=== PATIENT | male | born 1925 | race Caucasian/White ===

== ENCOUNTER 2016-02-03 21:53 | Inpatient (IN) | payer MEDICARE, OTHER ==
[~2016-02-03] VITALS: Ht 177.8 cm; Wt 60.1 kg
[~2016-02-03 21:53] MED LIST: ENAL2.5T PO; HYDR1TAB PO; OMEP20TA86 PO; ZOC20 PO
--- NOTE | 2016-02-03 22:12 | ED.REPORT ---
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 His states that the patient has collapsed once yesterday and once today, with decreased exercise capacity. The patient was evaluated by EMS yesterday after he collapsed, but he did not want to be transported to the ED. However, he was transported today after he collapsed prior to arrival. He did not lose consciousness. His states he feels fine if sitting, but if moves to his portable oxygen reports that he cannot breath. They have had to increase his oxygen requirements. The patient reported that he felt unwell at home prior to arrival, however in the ED he states that he now feels well. His reports a home O2 sat of 95% while on oxygen. He denies productive cough, fever, chest pain, abdominal pain, vomiting, or increased swelling in his legs. The patient is hard of hearing. Nursing Notes Stated Complaint: WEAKNESS,SOB Nursing Notes Reviewed: Yes Allergies: Coded Allergies: No Known Allergies (Verified , 05/23/06) Scheduled Enalapril-Expunged Drug, Do Not Renew! (Enalapril-Expunged Drug, Do Not Renew!) 2.5 Mg Tablet 2.5 MG PO DAILY Hydrocod/APAP-Expunged, Do Not Renew! (VICODIN 5/500-Expunged Drug, Do Not Renew ) 1 Udtab Tablet 1 UDTAB PO HS Omeprazole-Expunged Drug, Do Not Renew! (Omeprazole-Expunged Drug, Do Not Renew! ) 20 Mg Tablet.dr 20 MG PO THREE TIMES WEEKLY Simvastatin-Expunged Drug, Choose New Med! (Simvastatin-Expunged Drug, Choose New Med!) 20 Mg Tablet 20 MG PO DAILY General Time Seen by MD: 22:12 Chief Complaint Breathing problem, Weakness Hx Obtained From: Patient, Spouse Arrived By: Ambulance Sudden in Onset?: No Onset Occurred: 2 days ago Symptom Duration: Since onset Severity: Current: No pain currently Severity: Maximum: No pain Recent Healthcare: No recent doctor visit, No recent hospitalization Similar Sx Previous: No Past Medical History Past Medical History chronic emphysema arthritis hard of hearing Reports: GERD, Hypertension, Stroke Reports: Atrial fibrillation Past Surgical History left knee arthoplasty Reports: Cholecystectomy, Inguinal hernia repair, Tonsillectomy Smoking History Former Smoker Social History Alcohol Use: Denies alcohol use Other Social History: Good social support, , Local resident Ambulatory Status Independent Review of Systems Full Review of Systems Constitutional: Reports: Weakness - generalized, Denies: Fever Respiratory: Reports: Dyspnea on exertion, Shortness of breath, Denies: Prod cough, green, Prod cough, yellow Cardiovascular: Denies: Chest pain GI: Denies: Abdominal pain, Vomiting Musculoskeletal: Denies: Extremity pain, Extremity swelling Neurologic: Denies: Change LOC Complete sys rev & neg: except as marked. Physical Exam Vital Signs Vital Signs Date Time Temp Pulse Resp B/P Pulse Ox O2 Delivery O2 Flow Rate FiO2 02/04/16 00:06 22 118/60 100 Room Air 3 02/03/16 22:14 81 24 102/56 96 Nasal Cannula 3 Initial VS: Reviewed Neurologic: Alert, Oriented, Nonfocal Psychiatric: Mood/affect normal, Behavior normal, Normal thought content General/Constitutional: Awake, Alert hard of hearing dry appearing Head / Eyes: Normocephalic, PERRL, EOMI ENT: Airway patent Mouth: Positive: Mucous membranes dry Respiratory / Chest: No rales, No rhonchi Diminished Breath Sounds: Positive: Decreased bilateral Cardiovascular: Heart rate NL, Regular rhythm, No gallop, No murmurs, No rubs Heart Sounds / Murmur: Positive: Heart sounds diminished Abdomen: Soft, Non-tender, No guarding, No rebound Upper Extremities Upper Extremity / MS: No swelling, No edema Lower Extremity / Pelvis / MS: No swelling, No edema Skin: Warm, Dry Rash / Lesion Notes: dusky appearing Interpretation & Diagnostics Interpretation & Diagnostics: NEGATIVE FOR INFLUENZA TYPE A AND B Lab Results Interpretation Result Diagram: 02/03/16 2200 02/03/16 2200 Test 02/03/16 22:00 02/03/16 22:57 White Blood Count 10.3th/mm3 (3.8-10.1) Red Blood Count 4.18mil/mm3 (4.40-5.80) Hemoglobin 13.4g/dL (13.8-17.2) Hematocrit 40.9% (41.0-50.0) Mean Corpuscular Volume 97.8fL (81-100) Mean Corpuscular Hemoglobin 32.1pg (27.0-35.0) Mean Corpuscular Hemoglobin Concent 32.8% (32.0-37.0) Red Cell Distribution Width 13.3% (12.3-15.4) Platelet Count 307bil/L (150-400) Neutrophils (%) (Auto) 78.6% (40-74) Lymphocytes (%) (Auto) 10.0% (14-46) Monocytes (%) (Auto) 10.8% (4-12) Eosinophils (%) (Auto) 0.2% (0-5) Basophils (%) (Auto) 0.2% (0-3) Hold Purple Top Tube Received (Received) Prothrombin Time 27.8sec (8.1-12.5) Prothromb Time International Ratio 2.55ratio Activated Partial Thromboplast Time 31.7sec (22.8-33.0) Hold Blue Top Tube Received (Received) Sodium Level 132mEq/L (134-144) Potassium Level 4.7mEq/L (3.5-5.2) Chloride Level 92mEq/L (97-108) Carbon Dioxide Level 22mmol/L (18-29) Blood Urea Nitrogen 17mg/dL (8-27) Creatinine 0.85mg/dL (0.76-1.27) Estimat Glomerular Filtration Rate 90mL/min (>59) Glucose Level 162mg/dL (60-99) Calcium Level 9.2mg/dL (8.5-10.1) Magnesium Level 1.8mg/dL (1.6-2.6) Total Bilirubin 1.5mg/dL (0.0-1.2) Aspartate Amino Transf (AST/SGOT) 29U/L (0-50) Alanine Aminotransferase (ALT/SGPT) 18U/L (0-44) Alkaline Phosphatase 123U/L (25-160) Troponin T 0.075ug/L (0.0-0.011) Pro-B-Type Natriuretic Peptide 4361pg/mL (0-486) Total Protein 6.6g/dL (6.4-8.4) Albumin 3.9g/dL (3.4-5.0) Hold Red Top Tube Received (Received) Hold [place] Top Tube Received (Received) Hold [place] Top Tube Received (Received) ECG Interpretation ECG Interpretation: Atrial fibrillation, Rate 72 Old inferior wall NC Time: 23:15 Interpreted by: ED physician Normal ECG Interpretation: No acute ischemic changes X-Ray Chest Interpretation Chest Xray Interpretation: Impresson: Increasing pleural effusions bilaterally. Chronic changes associated with asbestosis. View: Portable Interpretation / Wet Read by: Wet read ED physician Re-Eval/Medical Decision Med Decision/Clinical Course 89-year-old with emphysema presents with increasing air hunger decreased exercise capacity and several episodes of near collapse or inability to walk and minimal distances. He has findings of emphysema on exam, but no evidence of acute infection. His x-ray has bilateral small pleural effusions which are new. No evident pneumonia. His troponin is elevated at 0.07 suggesting a non-STEMI in the past few days. I suspect ultimately his problem is that he is having LV dysfunction as a result of intermittent ischemia, and has had an non-transmural NC. He is admitted now for further evaluation and management, as this is a new issue for him. He was given aspirin, cardiac heparin, and Lasix IV. He is admitted in stable condition. Source of Hx: Old records Time of Eval: 23:03 Patient Status: Condition improved Re-Evaluation/Progress Note: Rechecked the patient and his family. They were informed of the results of the chest x-ray and labs, with the finding of an elevated troponin. Patient will need to be admitted to the hospital for further workup. Unknown current bed status at [facility]. Patient understands and agrees with this plan. All questions were addressed. Time of Eval: 00:03 Re-Evaluation/Progress Note: Updated the patient that a bed has been found for him at [facility]. Consultation #1: Referral / Consult Name: Siomara Suarez MD Consulted With: Hospitalist Call Returned at: 23:22 Note: Spoke with Dr. Suarez, hospitalist, about the patient's case. There are not currently any beds available that meet the criteria needed to admit this patient. Consultation #2: Referral / Consult Name: Siomara Suarez MD Consulted With: Hospitalist Call Returned at: 00:03 Inside Sales Account Representative: Will see patient, Agrees with eval, Agrees with plan, Accepts admit Note: Bed was found for the patient. Dr. Suarez accepts the patient for admit. Counseled Regarding: Diagnosis, Lab results, Need for admission Discharge & Departure Shift Change Sign-Out Response to Therapy: Improved Primary Impression: NSTEMI (non-ST elevated myocardial infarction) Additional Impressions: Elevated troponin Pleural effusion Shortness of breath Atrial fibrillation Atrial fibrillation type: chronic Qualified Code: I48.2 - Chronic atrial fibrillation Disposition: ADMITTED TO HOSPITAL Discharge Condition All VS Reviewed: Yes Condition: Stable Referrals: Mukesh Alonso DO (PCP) [facility] Attestation Portions of this note were transcribed by Rosita Hightower. I, Dr. Leach personally performed the history, physical exam and medical decision-making; I reviewed and confirmed the accuracy of the information in the transcribed note. Signed by: Tigre Uribe, 01/25/2016, 0005 copies to: Mukesh Alonso Christopher W MD Feb 03, 2016 22:12 Rosita Hightower Feb 03, 2016 22:22
[2016-02-03 22:14] VITALS: BP 102/56; PULSE 81; RESP 24; O2SAT 96
[2016-02-03] MEDS ORDERED: Albuterol-Ipratropium 3 mL Inhalation Solution NEB ONE (22:25)
[2016-02-03] MEDS ORDERED: Albuterol 2.5 mg/3 mL Inhalation Solution NEB ONE (22:25)
[2016-02-03 22:31] LABS: BASOPHILS % (AUTO) 0.2 % (0-3); EOSINOPHILS % (AUTO) 0.2 % (0-5); MONOCYTES % (AUTO) 10.8 % (4-12); Mean Corpuscular Hemoglobin 32.1 pg (27.0-35.0); Mean Corpuscular Volume 97.8 fL (81-100); NEUTROPHILS % (AUTO) 78.6 % (40-74); Platelet Count 307 bil/L (150-400)
[2016-02-03 22:39] LABS: INR 2.55 ratio
[2016-02-03 22:56] LABS: Magnesium 1.8 mg/dL (1.6-2.6)
[2016-02-03 22:58] LABS: TROPONIN T 0.075 ug/L (0.0-0.011)
--- NOTE | 2016-02-03 22:59 | ABG ---
DateTimeAnalyzed 22:55:00 -_ pH ____7.417 - 7.350 7.450 pCO2 ___34.1__ -mmHg 35.0 45.0 pO2 142 -mmHg 69.0 116 HCO3- ___21.6__ -mmol/L 22.0 26.0 ABE ___-1.8__ -mmol/L -2.0 2.0 tHb ___13.3__ -g/dL O2Hb ___96.9__ -% COHb ____1.1__ -% MetHb ____0.8__ -% sO2 ___98.8__ -% 25.0 FIO2 ___35.0__ -% Drawn By MK - Date/Time Notified____ 22:59:00 -_ Oxygen Device 1 SIMP MASK - Notified By MK - B 762 -mmHg tO2 ___18.3__ -Vol% Trey test _Positive -
[2016-02-04] VITALS (9 sets, daily range): BP systolic 113–141; BP diastolic 60–84; PULSE 66–112; RESP 16–26; O2SAT 90–100
[2016-02-04] MEDS ORDERED: Furosemide 10 mg/mL 4 mL Inj IVPUSH ONE (00:05)
[2016-02-04] MEDS ORDERED: Heparin 25K Unit/500mL 0.45 NS 25,000 UNIT in IV Premix 1 EACH IV SCH (00:05)
[2016-02-04] MEDS ORDERED: Heparin 5,000 Unit/mL Inj IVPUSH PRN (00:05)
--- NOTE | 2016-02-04 00:52 | PCM.HPMED ---
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 He has increased his oxygen at home from 2 liters to 3 liters. His told ER physician that the patient has collapsed once yesterday and once today, with decreased exercise capacity. The patient was evaluated by EMS yesterday after he collapsed, but he did not want to be transported to the ED. However, he was transported today (02/02) after he collapsed prior to arrival. He did not lose consciousness. His states he feels fine if sitting, but if moves to his portable oxygen reports that he cannot breathe. The patient reported that he felt unwell at home prior to arrival, however currently he denies any pain, dizziness, nausea, vomiting, shortness of breath, palpitations. His reported a home O2 sat of 95% while on oxygen. The patient is very hard of hearing. . Review of Systems: As per HPI, otherwise negative Allergies Coded Allergies: No Known Allergies (Verified , 05/23/06) Home Medications Taken from ED note. Day team to verify home medications: Enalapril-Expunged Drug, Do Not Renew! (Enalapril-Expunged Drug, Do Not Renew!) 2.5 Mg Tablet 2.5 MG PO DAILY Hydrocod/APAP-Expunged, Do Not Renew! (VICODIN 5/500-Expunged Drug, Do Not Renew ) 1 Udtab Tablet 1 UDTAB PO HS Omeprazole-Expunged Drug, Do Not Renew! (Omeprazole-Expunged Drug, Do Not Renew! ) 20 Mg Tablet.dr 20 MG PO THREE TIMES WEEKLY Simvastatin-Expunged Drug, Choose New Med! (Simvastatin-Expunged Drug, Choose New Med!) 20 Mg Tablet 20 MG PO DAILY PMH chronic emphysema arthritis hard of hearing Reports: GERD, Hypertension, Stroke Reports: Atrial fibrillation Surgical History left knee arthoplasty Reports: Cholecystectomy, Inguinal hernia repair, Tonsillectomy Family History Father with stroke, CAD Social History Hx Alcohol Use: Yes (quit in 1996) Hx Substance Use: No Hx Tobacco Use: Yes Smoking Status: Former Smoker Living Arrangement: with Family Exam Vital Signs Vital Sign - Last Date Time Temp Pulse Resp B/P Pulse Ox O2 Delivery O2 Flow Rate FiO2 02/04/16 00:06 22 118/60 100 Room Air 3 02/03/16 22:14 81 Exam General/Constitutional: Awake, Alert, cachectic Neurologic: Alert, Oriented, Nonfocal Psychiatric: Mood/affect normal, Behavior normal, Normal thought content Head / Eyes: Normocephalic, PERRL, EOMI ENT: Airway patent, hard of hearing Mouth: Positive: Mucous membranes dry Respiratory / Chest: No rales, No rhonchi, barrel chested, wearing nasal canula Diminished Breath Sounds: Positive: Decreased bilateral Cardiovascular: Heart rate NL, irregular rhythm, No gallop, No murmurs, No rubs appreciated, distant heart sounds Abdomen: Soft, Non-tender, No guarding, No rebound Extremities: 1+ pitting edema B/L feet and ankles . Lab and Diagnostics Labs Troponin T 0.075; ProPNP 4361; procalcitonin pending; urinalysis pending Result Diagram: 02/03/16219902/03/162199 Microbiology Microbiology 02/03/16 Blood Culture, Received Pending 02/03/16 Influenza Screen - Final, Complete, negative X-Rays, CTs and MRIs Chest Xray Interpretation: Impresson: Increasing pleural effusions bilaterally. Chronic changes associated with asbestosis. View: Portable Interpretation / Wet Read by: Wet read ED physician 12-lead ECG ECG Interpretation: Atrial fibrillation, Rate 72 Old inferior wall [place] Time: 23:15 Interpreted by: ED physician Normal ECG Interpretation: No acute ischemic changes Additional Diagnostics: CORNELIUS LEIGH 1925 Male DateTimeAnalyzed 22:55:00 -_ pH ____7.417 - 7.350 7.450 pCO2 ___34.1__ -mmHg 35.0 45.0 pO2 142 -mmHg 69.0 116 HCO3- ___21.6__ -mmol/L 22.0 26.0 ABE ___-1.8__ -mmol/L -2.0 2.0 tHb ___13.3__ -g/dL O2Hb ___96.9__ -% COHb ____1.1__ -% MetHb ____0.8__ -% sO2 ___98.8__ -% 25.0 FIO2 ___35.0__ -% Drawn By MK - Date/Time Notified____ 22:59:00 -_ Oxygen Device 1 SIMP MASK - Notified By MK - B 762 -mmHg tO2 ___18.3__ -Vol% Trey test _Positive - Assessment & Plan Patient is an 89 year old male with a history of 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 DAY TEAM TO VERIFY MEDICATIONS. HAS LIST BUT TOOK IT HOME. PATIENT STATES TAKES 7 MEDICATIONS AT 2:00 PM EVERY DAY. Dyspnea, present on admission, acute - Elevated troponin (0.075). Will trend - Heparin drip protocol - Consult cardiology in a.m. Not ordered yet - Echocardiogram ordered - PT ordered - Last echocardiogram 06/15/15: There is mild concentric left ventricular hypertrophy. The ejection fraction is estimated to be 50-55%. There is severe biatrial enlargement. There is mild to moderate mitral regurgitation. Leaflet mobility is minimally reduced. There is moderate tricuspid regurgitation. The right ventricular systolic pressure is estimated at 56 mmHg assuming a right atrial pressure of 8 mm Hg. Heart failure with reduced ejection fraction, present on admission, chronic - Currently patient does not look or sound fluid overloaded - Given furosemide in the ED - Monitor COPD, present on admission, chronic - Requires 2-3 L O2 at home - No increased need of oxygen - Keep O2 between 88% and 92% - Likely his increased SOB is related to cardiac. Plan as above. - DuoNebs - Given furosemide in the ED - Verify home medications B/L mild pleural effusions, present on admission, acute - monitor, currently using the same O2 as he uses at home - currently denying dyspnea Atrial fibrillation, present on admission, chronic - currently heparin drip - telemetry - Verify home medications Hypertension, present on admission, chronic - currently controlled - Verify home medications Dyslipidemia, present on admission, chronic - lipid panel ordered - Verify home medications - Acetaminophen as needed for mild pain/fever/headache - Bowel regimen as needed - Antiemetic as needed Patient admitted under inpatient status with expected length of stay > 2 midnights for severity of present symptoms, complexities of treatment plan and risk for adverse events CODE STATUS: DNR/DNI verified with patient Pain Evaluation: Adequate Pain Control GI Prophylaxis: Proton Pump Inhibitor VTE Prophylaxis: Other (haprin drip) Resuscitation Status: DNR/DNI:Do Not Resuscitate/Intubate Attending Statement Pt seen and examined by myself and agree with above plan. copies to: Mukesh Alonso Janice M DO Feb 04, 2016 00:52 Siomara Suarez MD Feb 04, 2016 06:20
[2016-02-04] MEDS ORDERED: Polyethylene Glycol (PEG) 17 Gm Powder PO PRN (00:55)
[2016-02-04] MEDS ORDERED: Ondansetron 2 mg/mL 2 mL Inj IVPUSH PRN (00:55)
[2016-02-04] MEDS ORDERED: Alum-Mag Hydrox-Simeth 30 mL Suspension PO PRN (00:55)
[2016-02-04] MEDS ORDERED: Albuterol-Ipratropium 3 mL Inhalation Solution NEB PRN (01:20)
[2016-02-04 01:42] LABS: APPEARANCE,URINE CLEAR (CLEAR,HAZY); COLOR,URINE YELLOW (YELLOW); OCCULT BLOOD,URINE NEGATIVE (NEGATIVE); PH,URINE 5.5 (5.0-8.0)
--- NOTE | 2016-02-04 04:27 | NUR ---
Admit Pt arrived to PCC room 2006 at approx. 0130 from ED via bed, report received from Trina Florez RN. Pt significantly fatigued, unable to transfer self to bed, but independent in bed mobility. AOx3. Pt denies pain, reports dyspnea at baseline. NC 2L in place, SpO2 97%. Unable to complete med rec d/t pt not having list with self; list requested to be brought in. Unable to complete admission documentation d/t extreme EKLUTNA in patient; pt unable to respond to questions. Hearing aides requested to be brought in. Heparin gtt infusing at 800units/hr. Tele afib 80s. Pt had 5 beats of VT x2 this shift, asymptomatic. SCDs in place.
[2016-02-04 06:10] LABS: BASOPHILS % (AUTO) 0.3 % (0-3); EOSINOPHILS % (AUTO) 0.3 % (0-5); MONOCYTES % (AUTO) 11.2 % (4-12); Mean Corpuscular Hemoglobin 31.5 pg (27.0-35.0); Mean Corpuscular Volume 95.8 fL (81-100); NEUTROPHILS % (AUTO) 74.8 % (40-74); Platelet Count 251 bil/L (150-400)
[2016-02-04 07:41] LABS: TROPONIN T 0.134 ug/L (0.0-0.011)
[2016-02-04] MEDS ORDERED: HYDR-4003 PO (08:21)
[2016-02-04] MEDS ORDERED: ASPI-973 PO (08:21)
[2016-02-04] MEDS ORDERED: WARF3TAB7 PO ×2 (08:21)
[2016-02-04] MEDS ORDERED: ATOR10TA66 PO (08:21)
[2016-02-04] MEDS ORDERED: DILT240T PO (08:21)
[2016-02-04] MEDS ORDERED: METF500T4 PO (08:21)
[2016-02-04] MEDS ORDERED: FERR325T39 PO (08:21)
[2016-02-04] MEDS ORDERED: ENAL2.5T PO (08:22)
[2016-02-04] MEDS ORDERED: CALC600T12 PO (08:22)
[2016-02-04] MEDS: Sodium Chloride LOK Flush 10 mL Syringe IVFLUSH SCH ×3 (08:30→20:31)
--- NOTE | 2016-02-04 09:08 | DRSVH ---
PROCEDURE: X-RAY CHEST ONE VIEW, PORTABLE ([id number]) INDICATIONS: sob TECHNIQUE: One view of the chest was acquired. COMPARISON: [facility], CR, XR CHEST 2VW, 06/25/2015, 10:01. FINDINGS: Surgical changes and devices: Previous thoracic spine kyphoplasty.. Lungs and pleura: Slight interval increase in size of small left pleural effusion. Interval increase in diffuse, widespread bilateral interstitial opacities. Left basilar airspace opacity present. Ri ght basilar pleural plaque redemonstrated. Mediastinum: Mediastinal contours appear normal. Heart size is normal. Bones and chest wall: No suspicious bony lesions. Overlying soft tissues appear unremarkable. IMPRESSION: 1. Increase in size of small left pleural effusion and basilar opacity consistent with compressive at electasis versus aspiration or pneumonia. 2. Diffuse bilateral interstitial opacities suggesting pulmonary edema. 3. 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 Dictated by: Tutu Sherman RRA Interpreted: Juana Jack MD on 02/04/2016 at 9:01 Transcribed by: ISATU on 02/04/2016 at 9:01 Approved by: Juana Jack MD, PhD on 02/04/2016 at 16:11
--- NOTE | 2016-02-04 14:10 | NUR ---
PTT/Heparin Pt PTT value this am at 0745 critical high at 223. Heparin drip was placed on standby and repeat PTT was drawn at 0845. Repeat value was 86. Pt heparin drip was restarted and decreased by 50units to 750units/hour. PTT was drawn again at 1200 per provider orders. Lab called with critical value of 240.Per protocol Heparin drip was placed in standby. MD was notified and discussed results with Nurse bridge/structure inspection team leader. Upon examination it appeared that the lab draw was in the same arm as the heparin drip and is providing a false positive for PTT. Lab called and notified. Asked for blanket maker to make sure blood draw is in other arm. Next scheduled PTT is at 1425 (ordered by ). Will use that result to calculate heparin drip rate moving forward. Per Nurse bridge/structure inspection team leader, heparin drip restarted at 750u/hr.
--- NOTE | 2016-02-04 14:37 | PCM.PNMED ---
Subjective Date of Service Feb 04, 2016 Subjective He is doing better. He notes his breathing is better. He denies any chest pain. No palpitations. No nausea vomiting or abdominal pain. No diarrhea. Exam Vital Signs Vital Sign - Last Date Time Temp Pulse Resp B/P Pulse Ox O2 Delivery O2 Flow Rate FiO2 02/04/16 11:34 36.4 112 24 141/84 90 Nasal Cannula 1.00 Intake and Output 02/03/16 02/03/16 02/04/16 Cumulative From/Thru 15:00 23:00 07:00 02/03/16 22:14 - 02/04/16 06:28 Intake Total 280 ml 280 ml Output Total 1200 ml 1200 ml Balance -920 ml -920 ml Intake Oral 200 ml 200 ml IV Total 80 ml 80 ml Output Urine Total 1200 ml 1200 ml # Voids 6 6 # Bowel Movements 0 0 Exam Third oriented, no acute distress. Fluent speech. Normal scalp. Anicteric sclerae, symmetric pupils Neck supple. Lungs with diminished breath sounds in the bases. No focal findings. Heart is regular without murmur. Abdomen is soft nondistended. Extremities are free of edema and good pedal and radial pulses. Skin is free of rash or lesions IVs and Medications Medications Reviewed: Medications were reviewed in detail Lab and Diagnostics Result Diagram: 02/04/16 0550 02/04/16 0550 Microbiology Microbiology 02/03/16 Blood Culture, Received Pending 02/03/16 Influenza Screen - Final, Complete, negative X-Rays, CTs and MRIs Chest Xray Interpretation: Impresson: Increasing pleural effusions bilaterally. Chronic changes associated with asbestosis. View: Portable Interpretation / Wet Read by: Wet read ED physician 12-lead ECG ECG Interpretation: Atrial fibrillation, Rate 72 Old inferior wall [place] Time: 23:15 Interpreted by: ED physician Normal ECG Interpretation: No acute ischemic changes Additional Diagnostics CORNELIUS LEIGH 1925 Male DateTimeAnalyzed 22:55:00 -_ pH ____7.417 - 7.350 7.450 pCO2 ___34.1__ -mmHg 35.0 45.0 pO2 142 -mmHg 69.0 116 HCO3- ___21.6__ -mmol/L 22.0 26.0 ABE ___-1.8__ -mmol/L -2.0 2.0 tHb ___13.3__ -g/dL O2Hb ___96.9__ -% COHb ____1.1__ -% MetHb ____0.8__ -% sO2 ___98.8__ -% 25.0 FIO2 ___35.0__ -% Drawn By MK - Date/Time Notified____ 22:59:00 -_ Oxygen Device 1 SIMP MASK - Notified By MK - B 762 -mmHg tO2 ___18.3__ -Vol% Trey test _Positive - Assessment & Plan Patient is an 89 year old male with a history of 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 1. - Elevated troponin (0.075). Will trend - Heparin drip protocol - Consult cardiology in a.m. Not ordered yet - Echocardiogram ordered - PT ordered - Last echocardiogram 06/15/15: There is mild concentric left ventricular hypertrophy. The ejection fraction is estimated to be 50-55%. There is severe biatrial enlargement. There is mild to moderate mitral regurgitation. Leaflet mobility is minimally reduced. There is moderate tricuspid regurgitation. The right ventricular systolic pressure is estimated at 56 mmHg assuming a right atrial pressure of 8 mm Hg. 2. Acute on chronic systolic heart Heart failure (with reduced ejection fraction,) present on admission, - Currently patient does not look or sound fluid overloaded - Given furosemide in the ED, we will continue furosemide 40 mg IV daily. - Monitor 3. COPD, present on admission, chronic. - Requires 2-3 L O2 at home - No increased need of oxygen - Keep O2 between 88% and 92% - Likely his increased SOB is related to cardiac. Plan as above. - DuoNebs - Given furosemide in the ED - Verify home medications 4. B/L mild pleural effusions, present on admission, acute - monitor, currently using the same O2 as he uses at home - currently denying dyspnea 5. Atrial fibrillation, present on admission, chronic - currently heparin drip. Will stop heparin drip. - telemetry - Verify home medications 6. Hypertension, present on admission, chronic - currently controlled - Verify home medications 7. Dyslipidemia, present on admission, chronic - lipid panel ordered - Verify home medications - Acetaminophen as needed for mild pain/fever/headache - Bowel regimen as needed - Antiemetic as needed Patient admitted under inpatient status with expected length of stay > 2 midnights for severity of present symptoms, complexities of treatment plan and risk for adverse events CODE STATUS: DNR/DNI verified with patient Pain Evaluation: Adequate Pain Control GI Prophylaxis: Proton Pump Inhibitor VTE Prophylaxis: Other (haprin drip) VTE Mechanical Devices: Intermittant Pneumatic CD Resuscitation Status: DNR/DNI:Do Not Resuscitate/Intubate Time spent 30 min Trey Ang MD Feb 04, 2016 14:36
--- NOTE | 2016-02-04 14:46 | NUR ---
Social Work: Initial Assessment D: Per EMR review, Pt is an 89 year old male admitted for NON-STEMI/SOB/Pleural Effusion. Pt is Medicare with [place] [employer], with no LTC insurance or VA benefits. PCP is Mukesh Alonso MD. NOK is CRISTELA River, , . Advanced directives not completed- information provided to pt by LEASE PURCHASE DRIVER. Readmit score not entered at this time. LEASE PURCHASE DRIVER met with pt at bedside. Sw role explained. See initial assessment. Pt lives in [facility] with his spouse. He uses a cane at baseline and also owns a walker if necessary. Pt has home 02 through [employer]. Pt states he has a history at [email or web address] and [facility] but not currently open for services. Pt continues to drive and is I. Pt worked with PT; current recommendation is home with [email or web address]. LEASE PURCHASE DRIVER reviewed recommendations- pt is declining HH at this time. A: Pt who is I at baseline. P: Anticipate pt to discharge home via POV once medically stable; LEASE PURCHASE DRIVER to continue to follow if pt changes mind about dcp/HH. HETAL Cosme Addendum: 02/04/16 at 1452 by MEDHAT HERNANDEZ Amended: Links added.
--- NOTE | 2016-02-04 16:37 | DRSVH ---
[facility] [address] [place] [address] Echocardiogram Report Name: CORNELIUS LEIGH KStudy Date: 02/04/2016 Height: 70 in Hospital Exam Location: [facility] Weight: 139 lb Gender: Male BSA: 1.8 m2 : 1925 Age: 89 yrs BP: 120/60 mm Hg Reason For Study: SOB Ordering Physician: HOSPITALIST MAUREENerformed By: Neli Valle Referring Physician: Dr. Valdo Alonso Interpretation Summary 1) Normal left ventricular size and thickness with mildly reduced systolic function (EF45-50%). 2) Basal to mid inferior wall and basal to mid inferolateral wall are akinetic. 3) Moderately dilated right ventricle with moderately reduced function. 4) Mild to moderate mitral regurgitation present. 5) Severe tricuspid regurgitation present. 6) Pulmonary hypertension present, estimated systolic pulmonary pressure of 50 mmHg 7) Elevated right sided filling pressures. Left sided pleural effusion present. 8) Compared to the Echo done 06/15/2015, wall motion abnormalities as noted above, mild systolic dysfunction, and volume overload are new on today's study. Procedure: A two-dimensional transthoracic echocardiogram with color flow and Doppler was performed. The study quality was technically good. Comparison is made with the echocardiogram of 06-15-15. The patient was in atrial fibrillation with heart rates between 87-102 bpm during the exam. Left Ventricle: The left ventricle is normal in size. There is normal left ventricular wall thickness. The ejection fraction is estimated to be 45-50%. Left ventricular systolic function is mildly reduced. Basal to mid inferior wall and basal to mid inferolateral wall are akinetic. Diastolic function could not be accurately assessed due to atrial fibrillation. Right Ventricle: The right ventricle is moderately dilated. Right ventricular systolic function is moderately reduced. Atria: The left atrium is severely dilated. The right atrium is severely dilated. The interatrial septum is intact with no evidence for an atrial septal defect. Mitral Valve: The mitral valve leaflets appear mildly thickened, but open well. There is mild calcification extending into the subvalvular apparatus. There is mild to moderate mitral regurgitation. Aortic Valve: The aortic valve is trileaflet. The aortic valve is mildly calcified. Leaflet mobility is mild to moderately reduced. There is no aortic valve stenosis. There is trace aortic regurgitation. Tricuspid Valve: The tricuspid valve leaflets are thin and pliable. There is severe tricuspid regurgitation. The right ventricular systolic pressure is estimated at 50 mmHg assuming a right atrial pressure of 15 mm Hg. Pulmonic Valve: The pulmonic valve is not well visualized. There is no pulmonic valvular regurgitation. Great Vessels: The aortic root is normal size. The ascending aorta is at the upper limits of normal in size. The IVC is dilated (diameter is greater than 2.1 cm) and it collapses less than 50% with a sniff. This suggests a high right atrial pressure of 15 mm Hg. Pericardium/ Pleura There is no pericardial effusion. There is a moderate left-sided pleural effusion. MMode/2D Measurements & Calculations LVIDd: 4.8 cmLA dimension: 5.3 cm RA long axis: 5.3 cm AoV Opening LVIDs: 4.3 cm FS: 11.1 % LA A2 area: 41.0 cm RA area: 26.1 cm Ao root diam EPSS: 1.4 cm LA A4 area: 34.6 cm RA vol: 108.8 ml IVSd: 0.96 cmLA length (vol): 7.2 cm RA : 60.8 ml/m Aortic Jxn LVPWd LA vol: 166.4 ml RVDd major: 5.9 cm : 0.4cm RVDd minor: 4.6 cm asc Aorta Diam LA vol index: 93.1 ml/m IVC diam: 2.6 cm AMY (plan) LV tan. diameter/BSA LV sys. diameter/BSA : 1.4 cm2 (cm/m^2): 2.7 (cm/m^2): 2.4 Doppler Measurements & Calculations Ao V2 max MV E max jc MV E/A: 2.9 TR max jc : 184.8 cm/sec : 127.8 cm/sec Med Peak E' Jc : 296.6 cm/sec Ao max PG MV A max jc TR max PG : 13.7 mmHg : 44.2 cm/sec E/E' med: 22.5 : 35.2 mmHg Ao mean PG MV P1/2t: 50.2 msec Lat Peak E' Jc PA V2 max : 58.9 cm/sec LVOT Max Jc E/E' lat: 13.8 PA mean PG : 68.3 cm/sec : 0.63 mmHg sev ratio PA Accel Time : 0.10 sec MV dec time MV P1/2t max jc Ao V2 mean LV V1 max PG : 0.17 sec : 115.0 cm/sec MVA(P1/2t): 4.4 cm2 Ao V2 VTI: 34.4 cm LV V1 VTI: 12.0 cm PA V2 mean : 36.1 cm/sec Reading Physician:04:36 PM
--- NOTE | 2016-02-04 17:00 | PCM.CONPHA ---
Assessment/Plan Assessment/Plan WARFARIN ANTICOAGULATION MANAGEMENT BY PHARMACY -INDICATION: AFIB -HOME DOSE: 3 MG SUN//THUR/SAT 1.5 MG SUN/SUN/SUN -CONCURRENT ANTICOAGULATION: NONE -CRCL: 55.31 ML/MIN -COAG TRENDS: -Feb 03-Jan INR 2.55 3.0 PLAN: Unknown if patient received a home dose yesterday, and with INR at upper limit of therapeutic will give a one time dose of 0.5 mg tonight to see how patient will respond. Pharmacy will continue to monitor and adjust doses as needed. INR's ordered out for 5 days. Thank you, YINA PRICE PHARMD Christine Price PharmD Feb 04, 2016 17:00
[2016-02-04] MEDS: HYDROcodone-APAP 5-325 mg Tablet PO SCH (20:31)
[2016-02-05] VITALS (8 sets, daily range): BP systolic 109–149; BP diastolic 64–86; PULSE 78–190; RESP 12–18; O2SAT 90–97
[2016-02-05 03:47] LABS: INR 2.69 ratio
[2016-02-05] MEDS: Sodium Chloride LOK Flush 10 mL Syringe IVFLUSH SCH ×2 (07:28→17:12)
--- NOTE | 2016-02-05 13:52 | PCM.PNMED ---
Subjective Date of Service Feb 05, 2016 Subjective No chest pain. No palpitations. No dyspnea. No edema or orthopnea. Is able to walk with minimal dyspnea. He denies nausea vomiting or abdominal pain. Exam Vital Signs Vital Sign - Last Date Time Temp Pulse Resp B/P Pulse Ox O2 Delivery O2 Flow Rate FiO2 02/05/16 09:29 Supplement Oxygen 02/05/16 09:15 124 02/05/16 07:25 36.5 16 149/81 90 1.00 Intake and Output 02/04/16 02/04/16 02/05/16 Cumulative From/Thru 15:00 23:00 07:00 02/03/16 22:14 - 02/05/16 06:03 Intake Total 1018 ml 300 ml 1598 ml Output Total 1300 ml 950 ml 3450 ml Balance -282 ml -650 ml -1852 ml Intake Oral 900 ml 300 ml 1400 ml IV Total 118 ml 198 ml Output Urine Total 1300 ml 950 ml 3450 ml # Voids 5 11 # Bowel Movements 0 0 Exam Neurologic oriented, no distress. Fluent speech Normal skull. Anicteric sclerae, symmetric pupils. Lungs are clear, normal effort. Heart is regular without murmur Abdomen is soft nondistended. Extremities are free of edema. The pedal and radial pulses. IVs and Medications Medications Reviewed: Medications were reviewed in detail Lab and Diagnostics Result Diagram: 02/04/16 0550 02/04/16 0550 Microbiology Microbiology 02/03/16 Blood Culture, Received Pending 02/03/16 Influenza Screen - Final, Complete, negative X-Rays, CTs and MRIs Chest Xray Interpretation: Impresson: Increasing pleural effusions bilaterally. Chronic changes associated with asbestosis. View: Portable Interpretation / Wet Read by: Wet read ED physician 12-lead ECG ECG Interpretation: Atrial fibrillation, Rate 72 Old inferior wall NC Time: 23:15 Interpreted by: ED physician Normal ECG Interpretation: No acute ischemic changes Additional Diagnostics CORNELIUS LEIGH 1925 Male DateTimeAnalyzed 22:55:00 -_ pH ____7.417 - 7.350 7.450 pCO2 ___34.1__ -mmHg 35.0 45.0 pO2 142 -mmHg 69.0 116 HCO3- ___21.6__ -mmol/L 22.0 26.0 ABE ___-1.8__ -mmol/L -2.0 2.0 tHb ___13.3__ -g/dL O2Hb ___96.9__ -% COHb ____1.1__ -% MetHb ____0.8__ -% sO2 ___98.8__ -% 25.0 FIO2 ___35.0__ -% Drawn By MK - Date/Time Notified____ 22:59:00 -_ Oxygen Device 1 SIMP MASK - Notified By MK - B 762 -mmHg tO2 ___18.3__ -Vol% Trey test _Positive - Assessment & Plan Patient is an 89 year old male with a history of 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 1. - Elevated troponin (0.075). POA. The patient has had no chest pain. He had a significant troponin elevation which plateaued and is now normalizing. The patient had no chest pain but does have new wall motion abnormalities echo. Discussed options with the patient including no further workup versus a noninvasive workup for risk stratification and we will pursue a stress test on Sunday. In the meantime we will begin Coreg 3.125 mg continue aspirin and an ROSA ISELA inhibitor and statin. 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 We will also pursue a risk stratification study to rule out severe obstructive coronary artery disease with a maybe on Sunday. 3. COPD, present on admission, chronic. This is stable on current medical regimen. No changes. 4. Atrial fibrillation, present on admission, chronic Well forego heparin drip bridge. Patient is not a great candidate for Lovenox given his running kidney disease. His INR is 1.7 we will simply continue his Coumadin per pharmacy. 5. Hypertension, present on admission, chronic - currently controlled 6. Dyslipidemia, present on admission, chronic - lipid panel ordered - Acetaminophen as needed for mild pain/fever/headache - Bowel regimen as needed - Antiemetic as needed Patient admitted under inpatient status with expected length of stay > 2 midnights for severity of present symptoms, complexities of treatment plan and risk for adverse events CODE STATUS: DNR/DNI verified with patient Pain Evaluation: Adequate Pain Control GI Prophylaxis: Proton Pump Inhibitor VTE Prophylaxis: Other (haprin drip) VTE Mechanical Devices: Intermittant Pneumatic CD Resuscitation Status: DNR/DNI:Do Not Resuscitate/Intubate Time spent 35 minutes Trey Ang MD Feb 05, 2016 13:52
--- NOTE | 2016-02-05 18:17 | NUR ---
Heart rate Patient in Afib, heart rate increased to 100s-110s at baseline with spikes into the 170s with activity. MD notified.
[2016-02-05] MEDS: HYDROcodone-APAP 5-325 mg Tablet PO SCH (19:37)
[2016-02-06] VITALS (11 sets, daily range): BP systolic 99–124; BP diastolic 65–84; PULSE 77–108; RESP 16–22; O2SAT 94–100
[2016-02-06] MEDS: Sodium Chloride LOK Flush 10 mL Syringe IVFLUSH SCH ×4 (00:24→23:48)
[2016-02-06 03:41] LABS: INR 2.34 ratio
--- NOTE | 2016-02-06 05:03 | NUR ---
Uneventful evening. Patient rested comfortably in bed without pain during my shift. Patient reported the he felt nervous at time about his stress test in the morning. Education about what was involved in a rest test was provided and patient verbalized understanding.
--- NOTE | 2016-02-06 09:20 | NUR ---
[facility]gned
[2016-02-06 10:59] LABS: Mean Corpuscular Hemoglobin 31.7 pg (27.0-35.0); Mean Corpuscular Volume 96.4 fL (81-100)
--- NOTE | 2016-02-06 11:00 | NUR ---
Rapid Response Patient became short of breath while up to the bathroom. SpO2 was in low 80s on 2L with a resp rate in the 30s, O2 increased to 6L. Patient still unable to recover SPO2. MD was in room and called rapid response. Oxy mask was placed and O2 increased to 8L. All other VS stable. EKG was done and reviewed by MD. Patient slowly recovered SpO2 into the mid 90s, resp rate returned to normal limits. Chest xray ordered per MD.
[2016-02-06 11:11] LABS: INR 2.37 ratio
[2016-02-06 11:41] LABS: TROPONIN T 0.138 ug/L (0.0-0.011)
[2016-02-06] MEDS ORDERED: Heparin 5,000 Unit/mL Inj IVPUSH PRN (11:55)
[2016-02-06] MEDS ORDERED: Heparin 25K Unit/500mL 0.45 NS 25,000 UNIT in IV Premix 1 EACH IV SCH (11:55)
--- NOTE | 2016-02-06 12:02 | DRSVH ---
PROCEDURE: X-RAY CHEST ONE VIEW ([id number]) INDICATIONS: DYSPNEA TECHNIQUE: One view of the chest was acquired. COMPARISON: [facility], CR, XR CHEST 1VW (PORTABLE), 02/03/2016, 22:22. FINDINGS: Surgical changes and devices: None. Lungs and pleura: Trace left-sided pleural effusion is noted. Patchy opacities noted in left lung b ase compatible atelectasis versus pneumonia. Calcified pleural plaques noted in the right hemithorax . Post procedure changes compatible with thoracic spine percutaneous vertebroplasty is noted. Mediastinum: Mediastinal contours appear normal. Heart size is normal. Bones and chest wall: No suspicious bony lesions. Overlying soft tissues appear unremarkable. IMPRESSION: Trace left-sided pleural fluid collection. Patchy opacities in the left lung base amanda tible atelectasis versus pneumonia. Dictated by: Juana Jack MD, PhD on 02/06/2016 at 12:00 Approved by: Juana Jack MD, PhD on 02/06/2016 at 12:00
--- NOTE | 2016-02-06 13:14 | DRSVH ---
PROCEDURE: CT ANGIO CHEST PULMONARY EMBOLISM ([id number]) INDICATIONS: dyspnea TECHNIQUE: After the administration of intravenous contrast, 2 mm thick sections acquired from the pulmonary api angel to the posterior costophrenic angles. 3-dimensional maximum intensity projection (MIP) coronal a nd sagittal reformats were then acquired through the thorax. For radiation dose reduction, the follo wing was used: automated exposure control, adjustment of mA and/or kV according to patient size. COMPARISON: [facility], CR, XR CHEST 2VW, 06/25/2015, 10:01. [facility], CR , XR CHEST 1VW, 02/06/2016, 11:28. FINDINGS: Image quality: Excellent. Pulmonary arteries: Pulmonary arteries are normal in size, and demonstrate no intraluminal filling d efects to suggest central pulmonary embolism. Lungs and pleura: Severe emphysematous disease noted in the lungs bilaterally. Trace right and smal l left pleural fluid collections are noted. Consolidation noted in the left lung base which could re present compressive atelectasis versus pneumonia.. Pleural-parenchymal scarring noted in the lateral periphery of the right upper lobe which is not significantly changed compared to prior plain film ra diographs. Procedural changes compatible with prior midthoracic spine percutaneous vertebroplasty. Central and peripheral airways are patent. Right hemithorax pleural calcifications noted which are st able compared to prior plain film radiographs. Mediastinum: Heart size is normal, without pericardial effusion. Pericardial calcifications are note d. Atherosclerotic calcifications noted in the aorta, great vessels and the coronary vasculature. No mediastinal or hilar adenopathy. Thoracic aorta is normal in caliber and enhancement. Esophagus is normal in caliber, without hiatal hernia. Bones and chest wall: No suspicious bony lesions. Ribs and thoracic spine appear intact throughout. Thyroid gland is within normal limits. No axillary or supraclavicular adenopathy. Abdomen: Small hiatal hernia is noted. Visualized upper abdominal solid organs appear normal in the early arterial phase of enhancement. IMPRESSION: 1. No pulmonary loss. 2. Small left and trace right pleural fluid collections. 3. Left lower lobe consolidation compatible with atelectasis versus pneumonia. 4. Atherosclerosis including the coronary vasculature. 5. Scattered pericardial calcifications. Please correlate with echocardiogram findings. Dictated by: Juana Jack MD, PhD on 02/06/2016 at 13:12 Approved by: Juana Jack MD, PhD on 02/06/2016 at 13:12
--- NOTE | 2016-02-06 14:28 | PCM.PNMED ---
Subjective Date of Service Feb 06, 2016 Subjective The like and the patient who became very short of breath just after coming back from the bathroom. He could not catch his breath recall the rapid response. He desaturated to the low 80s and required a nonrebreather at about 15 minutes to get his saturations back up. A stat EKG was obtained which was unremarkable. The patient had much more dyspnea with exertion today that he had yesterday. He denies cough. He also had a stat troponin which is minimally elevated again today but stable over the last 4 days. He denies any chest pain. GI did recover ultimately after about 30 minutes. No palpitations and no abnormalities on telemetry Exam Vital Signs Vital Sign - Last Date Time Temp Pulse Resp B/P Pulse Ox O2 Delivery O2 Flow Rate FiO2 02/06/16 11:24 36.8 101 22 99/70 97 OxyMask 6.00 Intake and Output 02/05/16 02/05/16 02/06/16 Cumulative From/Thru 15:00 23:00 07:00 02/03/16 22:14 - 02/06/16 04:42 Intake Total 826 ml 800 ml 3224 ml Output Total 1150 ml 920 ml 5520 ml Balance -324 ml -120 ml -2296 ml Intake Oral 826 ml 800 ml 3026 ml IV Total 198 ml Output Urine Total 1150 ml 920 ml 5520 ml # Voids 11 # Bowel Movements 1 1 Exam Third oriented, very anxious at the time of this event. Pupils are symmetric, anicteric sclera, No facial droop. Neck is supple, JVP. Lungs showed a 4 breath sounds, initially tachypnea and decreased breath sounds. Heart tachycardic without murmur or gallop. Irregular. Chronic atrial fibrillation. Abdomen soft nondistended Extremities are free of edema and have good pedal and radial pulses IVs and Medications Medications Reviewed: Medications were reviewed in detail Lab and Diagnostics Result Diagram: 02/06/16 1050 02/06/16 1050 Microbiology Microbiology 02/03/16 Blood Culture, Received Pending 02/03/16 Influenza Screen - Final, Complete, negative X-Rays, CTs and MRIs Chest Xray Interpretation: Impresson: Increasing pleural effusions bilaterally. Chronic changes associated with asbestosis. View: Portable Interpretation / Wet Read by: Wet read ED physician 12-lead ECG ECG Interpretation: Atrial fibrillation, Rate 72 Old inferior wall CO Time: 23:15 Interpreted by: ED physician Normal ECG Interpretation: No acute ischemic changes Additional Diagnostics CORNELIUS LEIGH 1925 Male DateTimeAnalyzed 22:55:00 -_ pH ____7.417 - 7.350 7.450 pCO2 ___34.1__ -mmHg 35.0 45.0 pO2 142 -mmHg 69.0 116 HCO3- ___21.6__ -mmol/L 22.0 26.0 ABE ___-1.8__ -mmol/L -2.0 2.0 tHb ___13.3__ -g/dL O2Hb ___96.9__ -% COHb ____1.1__ -% MetHb ____0.8__ -% sO2 ___98.8__ -% 25.0 FIO2 ___35.0__ -% Drawn By MK - Date/Time Notified____ 22:59:00 -_ Oxygen Device 1 SIMP MASK - Notified By MK - B 762 -mmHg tO2 ___18.3__ -Vol% Trey test _Positive - Assessment & Plan Patient is an 89 year old male with a history of 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 1. - Elevated troponin (0.075). POA. The patient has had no chest pain. He had a significant troponin elevation which plateaued and is now normalizing. The patient had no chest pain but does have new wall motion abnormalities echo. Discussed options with the patient including no further workup versus a noninvasive workup for risk stratification and we will pursue a stress test on Sunday. In the meantime we will begin Coreg 3.125 mg continue aspirin and an ROSA ISELA inhibitor and statin. The patient's decompensation today will mandate holding on the stress test. His persistently elevated troponin with increased dyspnea and a normal EKG increases the concern for pulmonary embolism. We will obtain a CT pulmonary angiogram today. 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 We will evaluate pulmonary edema with a CT pulmonary angiogram results. 3. COPD, present on admission, chronic. This is stable on current medical regimen. No changes. I believe patient is more severe lung disease than initially appreciated. If his CT exam is unremarkable we will treat him for potential COPD exacerbation with IV steroids and scheduled as well as when necessary bronchodilators. 4. Atrial fibrillation, present on admission, chronic The patient is therapeutic on his Coumadin today 5. Hypertension, present on admission, chronic - currently controlled 6. Dyslipidemia, present on admission, chronic - lipid panel ordered - Acetaminophen as needed for mild pain/fever/headache - Bowel regimen as needed - Antiemetic as needed Patient admitted under inpatient status with expected length of stay > 2 midnights for severity of present symptoms, complexities of treatment plan and risk for adverse events CODE STATUS: DNR/DNI verified with patient Pain Evaluation: Adequate Pain Control GI Prophylaxis: Proton Pump Inhibitor VTE Prophylaxis: Other (haprin drip) VTE Mechanical Devices: Intermittant Pneumatic CD Resuscitation Status: DNR/DNI:Do Not Resuscitate/Intubate Time spent 40 minutes Trey Ang MD Feb 06, 2016 14:27
[2016-02-06] MEDS: MethylprednisoLONE Sodium Succinate 62.5 mg/mL 2 mL Inj IVPUSH SCH ×2 (16:17→19:55)
[2016-02-06] MEDS ORDERED: 0.9% Sodium Chloride 250 ML ONE (16:21)
[2016-02-06] MEDS: Azithromycin Inj 500 MG in Dextrose 5% w/Vial Mate 250 ML IV SCH (16:23)
[2016-02-06] MEDS: cefTRIAXone Inj 2,000 MG in IV Premix 1 EACH IV SCH (16:23)
--- NOTE | 2016-02-06 16:49 | NUR ---
Stress test Patient scheduled for stress test tomorrow at 9 AM. Patient is to have no caffeine until after test and will be NPO after midnight. Carvedilol will be held tonight and in the AM per [facility] RN.
[2016-02-06] MEDS: Albuterol-Ipratropium 3 mL Inhalation Solution NEB SCH ×2 (16:52→20:17)
[2016-02-06] MEDS: HYDROcodone-APAP 5-325 mg Tablet PO SCH (19:55)
[2016-02-07] VITALS (18 sets, daily range): BP systolic 85–140; BP diastolic 24–100; PULSE 66–152; RESP 16–38; O2SAT 82–98
[2016-02-07] MEDS: Albuterol-Ipratropium 3 mL Inhalation Solution NEB SCH ×4 (02:46→20:33)
[2016-02-07] MEDS: MethylprednisoLONE Sodium Succinate 62.5 mg/mL 2 mL Inj IVPUSH SCH ×3 (02:48→14:57)
[2016-02-07 03:27] LABS: INR 2.5 ratio
--- NOTE | 2016-02-07 03:56 | NUR ---
uneventful evening. Patient slept well and reported being free from pain. Patient maintained stable vitals throughout the night and reported that he is feeling less anxious then on day shift.
[2016-02-07] MEDS: Sodium Chloride LOK Flush 10 mL Syringe IVFLUSH SCH ×2 (07:41→16:30)
--- NOTE | 2016-02-07 09:15 | NUR ---
Stress test off floor at 0915hrs for stress test.
[2016-02-07] MEDS ORDERED: MeTOProlol 1 mg/mL 5 mL Inj ONE (10:00)
[2016-02-07] MEDS ORDERED: MetoCLOpramide 5 mg/mL 2 mL Inj ONE (11:28)
--- NOTE | 2016-02-07 12:49 | NUR ---
A-fib with increased heart rate. patient A-fib. at rest rate has been 110-120's. At 1245hrs patient sitting at bedside for lunch visiting with family ane heart rate increased to 160-170's. upon assessment, patient reports SOB "slightly worse then usual". denies dizziness/lightheaded or chest pain. patient reports being upset because it took so long to get lunch. Dr Ang notified. no new orders yet. continue monitoring.
[2016-02-07] MEDS: cefTRIAXone Inj 2,000 MG in IV Premix 1 EACH IV SCH (13:57)
--- NOTE | 2016-02-07 14:13 | PCM.PNMED ---
Subjective Date of Service Feb 07, 2016 Subjective He is doing well. He completed his stress test today with minimal symptoms. He still has fairly severe dyspnea on exertion when going to the bathroom. No chest pain or palpitations. When he was preparing lunch she did have an asymptomatic tachycardia in the 170s. He felt slightly fatigued but had no other symptoms. No abdominal pain. Exam Vital Signs Vital Sign - Last Date Time Temp Pulse Resp B/P Pulse Ox O2 Delivery O2 Flow Rate FiO2 02/07/16 11:01 37.0 96 18 138/88 98 Nasal Cannula 2.00 Intake and Output 02/06/16 02/06/16 02/07/16 Cumulative From/Thru 15:00 23:00 07:00 02/03/16 22:14 - 02/07/16 04:42 Intake Total 900 ml 0 ml 4124 ml Output Total 1000 ml 775 ml 7295 ml Balance -100 ml -775 ml -3171 ml Intake Oral 600 ml 0 ml 3626 ml IV Total 300 ml 498 ml Output Urine Total 1000 ml 775 ml 7295 ml # Voids 11 # Bowel Movements 1 2 Exam Alert and oriented, calm today Pupils are symmetric, anicteric sclera, No facial droop. Neck is supple, JVP. Lungs showed a 4 breath sounds, initially tachypnea and decreased breath sounds. Heart tachycardic without murmur or gallop. Irregular. Chronic atrial fibrillation. Abdomen soft nondistended Extremities are free of edema and have good pedal and radial pulses IVs and Medications Medications Reviewed: Medications were reviewed in detail Lab and Diagnostics Result Diagram: 02/06/16 1050 02/06/16 1050 Microbiology Microbiology 02/03/16 Blood Culture, Received Pending 02/03/16 Influenza Screen - Final, Complete, negative X-Rays, CTs and MRIs Chest Xray Interpretation: Impresson: Increasing pleural effusions bilaterally. Chronic changes associated with asbestosis. View: Portable Interpretation / Wet Read by: Wet read ED physician 12-lead ECG ECG Interpretation: Atrial fibrillation, Rate 72 Old inferior wall DC Time: 23:15 Interpreted by: ED physician Normal ECG Interpretation: No acute ischemic changes Additional Diagnostics LUCORNELIUS Hector 1925 Male DateTimeAnalyzed 22:55:00 -_ pH ____7.417 - 7.350 7.450 pCO2 ___34.1__ -mmHg 35.0 45.0 pO2 142 -mmHg 69.0 116 HCO3- ___21.6__ -mmol/L 22.0 26.0 ABE ___-1.8__ -mmol/L -2.0 2.0 tHb ___13.3__ -g/dL O2Hb ___96.9__ -% COHb ____1.1__ -% MetHb ____0.8__ -% sO2 ___98.8__ -% 25.0 FIO2 ___35.0__ -% Drawn By MK - Date/Time Notified____ 22:59:00 -_ Oxygen Device 1 SIMP MASK - Notified By MK - B 762 -mmHg tO2 ___18.3__ -Vol% Trey test _Positive - Assessment & Plan Patient is an 89 year old male with a history of 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 1. - Elevated troponin (0.075). POA. We elected to proceed with a stress test. This was done today. We are awaiting the results but patient was not really symptomatic during his pharmacologic test. The patient's decompensation today will mandate holding on the stress test. His persistently elevated troponin with increased dyspnea and a normal EKG increases the concern for pulmonary embolism. We will obtain a CT pulmonary angiogram today. 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 3. COPD, present on admission, chronic. Possible acute exacerbation. I had started treating him with thiamine Medrol bronchodilators with his acute dyspnea on exertion yesterday which I believe is indicative of an exacerbation in A fairly severe chronic lung disease. I believe he is clinically improving but slowly. 4. Possible to make her pneumonia. This was detected as a small infiltrate on CT scan. He is currently being treated with empiric ceftriaxone and azithromycin. No change to current management. 5. Atrial fibrillation, present on admission, chronic The patient is therapeutic on his Coumadin today 6. Hypertension, present on admission, chronic - currently controlled 7. Dyslipidemia, present on admission, chronic - lipid panel ordered CODE STATUS: DNR/DNI verified with patient Pain Evaluation: Adequate Pain Control GI Prophylaxis: Proton Pump Inhibitor VTE Prophylaxis: Other (haprin drip) VTE Mechanical Devices: Intermittant Pneumatic CD Resuscitation Status: DNR/DNI:Do Not Resuscitate/Intubate Time spent 30 minutes. Did meet with and daughter as well. Trey Ang MD Feb 07, 2016 14:13
[2016-02-07] MEDS: Azithromycin Inj 500 MG in Dextrose 5% w/Vial Mate 250 ML IV SCH (14:57)
--- NOTE | 2016-02-07 16:55 | DRSVH ---
PROCEDURE: X-RAY CHEST ONE VIEW, PORTABLE ([id number]) INDICATIONS: 89 year-old male with dyspnea. TECHNIQUE: One view of the chest was acquired. COMPARISON: [facility], CR, XR CHEST 1VW, 02/06/2016, 11:28. [facility], CR, XR CHEST 1VW (PORTABLE), 02/03/2016, 22:22. [facility], CR, XR CHEST 2VW, 06/25/2015, 1 0:01. FINDINGS: Surgical changes and devices: Patient is status post T6 and T7 vertebroplasty or kyphoplasty procedur es as before. Lungs and pleura: No acute airspace opacities. Trace right and small left basal pleural effusions per sist. No pneumothorax. Basal right pleural calcification is again noted. Mediastinum: Mediastinal contours appear normal. Heart size is normal. There is aortic atheroscler osis. Bones and chest wall: No suspicious bony lesions. Overlying soft tissues appear unremarkable. IMPRESSION: 1. Trace right and small left basal pleural effusions persist, of uncertain etiology. 2. No acute pulmonary disease. 3. Asymmetric basal right pleural calcification as before, suggesting remote hemothorax or empyema, v ersus remote asbestos exposure. Dictated by: Connor Hurd M.D. on 02/07/2016 at 16:53 Approved by: Connor Hurd M.D. on 02/07/2016 at 16:53
--- NOTE | 2016-02-07 17:17 | NUR ---
Status Charge At 1600hrs patient had a significant change in mental and respiratory status. increased SOB and increased effort with breathing. Unable to respond to verbal stimuli. O2 sat dropped to mid 70's. with left arm flaccid. Dr Ang notified, new orders received. Vitals signs recorded in chart. blood sugar check 239. Last know well 1550hrs. ECG completed, BiPap started, portable chest XR completed. Ativan 0.5mg IV given to help with anxiety. At 1610hrs left arm mobility improved, patient able to move/lift off of bed, still had drift/weakness and patient able to respond to verbal stimuli. speech clear. 1630hrs left arm strength improving, but still weak with drift within 5-[address] Ang called and updated patient's daughter, Nona. O2 sat improved with BiPap, 90-94%. continue to monitor.
--- NOTE | 2016-02-07 17:23 | NUR ---
Social Work Note: Continued Discharge Planning Data& Assessment: SW met with pt at bedside to discuss discharge planning. SW and pt reflected on recent respiratory status and a decline in strength. Pt is not agreeable to SNF but is agreeable to Home Health as leaving home will be physically taxing for him for an extended amount of time after his hospitalization. Pt is hoping his SOB will improve sooner rather than later. Pt is agreeable to PT and RN to check his vitals. Pt provided with Home Health List for preferences. Pt did not have a preference and agreed to refer to the rotating calender. Referral made to [facility] for RN and PT. Pt denies any other needs at this time. SW to continue to follow. Plan: Anticipated discharge home via POV when medically ready with [facility] RN and PT to follow. Pt denies any other needs at this time. SW to continue to follow. HETAL Narayanan
--- NOTE | 2016-02-07 17:55 | NUR ---
unresponsive At 1750hrs patient unresponsive to verbal or painful stimuli. 0.5mg iv ativan was given at 1700hrs. Dr Ang notified, AGB's ordered. continue to monitor.
--- NOTE | 2016-02-07 19:34 | ABG ---
DateTimeAnalyzed 19:29:00 -_ pH ____7.343 - 7.350 7.450 pCO2 ___15.2__ -mmHg 35.0 45.0 pO2 247 -mmHg 69.0 116 HCO3- ____8.0__ -mmol/L 22.0 26.0 ABE __-15.8__ -mmol/L -2.0 2.0 tHb ___14.5__ -g/dL O2Hb ___98.0__ -% COHb ____0.5__ -% MetHb ____0.7__ -% sO2 ___99.2__ -% 25.0 FIO2 ___50.0__ -% CPAP ___16.0__ -cmH2O PEEP ____6.0__ -cmH2O Set_RR ___16.0__ -b/min Vt 1000.0__ -L Drawn By af - Date/Time Notified____ 19:33:00 -_ Spontaneous_RR ___30.0__ -b/min Oxygen Device 1 ____BIPAP - Notified By af - Notified Whom ___Amy RN - B 761 -mmHg tO2 ___20.5__ -Vol% Trey test N/A -
[2016-02-07] MEDS: HYDROcodone-APAP 5-325 mg Tablet PO SCH (20:10)
[2016-02-07] MEDS ORDERED: Morphine 2 mg/mL Syringe Loading/bolus dose IVPUSH PRN (21:55)
[2016-02-07] MEDS ORDERED: Morphine 100 mg/100 mL NS 100 MG in IV Premix 1 EACH IV SCH (21:55)
--- NOTE | 2016-02-07 22:08 | NUR ---
Pt Pt at 2104. At start of shift, was unresponsive except to painful stimuli, mottled, sats difficult to read on bipap due to poor circulation, so using ear sensor, tele afib in 110's. increasing at times to 140's, SBP in 80's. Moving right arm/leg. but no movement of left noted. Respirations were initially in the 30's, then started having apneic periods. Daughter Nona called and was updated on patient condition. also called and was updated as well. ABG results obtained and Dr Suarez notified at 1940. No new orders. Received call from Dr Ang and orders for comfort care. He stated he called the family and updated them on patient's condition. Before comfort orders could be implemented, patient . Daughter Nona notified. She stated she would notify his . They haven't decided on home, so will call in AM. Patient's watch and upper dentures were the only belongings in the room. These were sent to [facility] with patient. Family aware that belongings would be sent with patient. notified as well.
--- NOTE | 2016-02-08 13:38 | DRSVH ---
PROCEDURE: EITHER REST OR STRESS ONLY INDICATIONS: Mr. River is an 89-year-old gentleman with oxygen-dependent COPD, presenting with incr eased dyspnea and positive troponins. Nuclear cardiac stress study is performed to evaluate for sign ificant underlying ischemic heart disease. COMPARISON: None. PROCEDURE: This patient underwent a pharmacologic stress study yesterday receiving a total of 23.1 m Ci of technetium-99 tetrofosmin for the stress portion of the examination. He was scheduled to be br ought back today for resting examination but yesterday. Prone imaging was not acquired. FINDINGS: Stress Test: This patient was in atrial fibrillation with moderately rapid ventricular response at t he start of the examination. He received a standard Lexiscan injection, which was associated with sy mptoms of dyspnea and cough. He had a moderately tachycardic heart rate response and a mildly hypote nsive blood pressure response and symptoms resolved with a combination of 100 mg of aminophylline and 2.5 mg of IV metoprolol. Baseline EKG again shows atrial fibrillation with some nonspecific ST and T-wave abnormalities but no significant ST segment elevation or depression. Raw Data: Raw data images demonstrate overall good image quality. The patient was examined with bot h arms at his sides but no significant interference or artifact identified on the single set of image s obtained. Quantitative Gated SPECT Imaging: Gated images demonstrate absence of any myocardial perfusion or wa ll motion in the inferior, lateral and apical areas. The end diastolic volume is estimated as being relatively small at 42 cc, but this suggests significant interpolation by the computer since a bit mo re than 50% of the myocardium is not identified. Ejection fraction again is probably over-estimated at 36%. Myocardial Perfusion SPECT Imaging: Once again, only a single set of images was obtained following L exiscan perfusion. This demonstrates normal perfusion involving the anterior wall and anterior septu m, but there is an extensive area of dense hypoperfusion involving the inferior septum, inferior apex , inferior wall, and posterolateral wall. This appears to be 50% to 55% of the myocardium and sugges ts fairly extensive ischemia and/or scar in the distribution of a large dominant right coronary arter y likely. IMPRESSION: Abnormal nuclear cardiac stress study suggesting extensive ischemia or infarction involv ing over 50% of the myocardium in the distribution of the inferior septum, inferior and posterolatera l sy. Dictated by: Jonathan Bagley M.D. on 02/08/2016 at 12:48 Transcribed by: ELSA on 02/08/2016 at 16:38 Approved by: Jonathan Bagley M.D. on 02/08/2016 at 17:20
--- NOTE | 2016-02-09 17:56 | PCM.DC.MED ---
Discharge Summary Date of Service Feb 07, 2016 Dates of Hospitalization Date of Hospital Admission Feb 04, 2016 at 00:22 Date of Discharge: Feb 07, 2016 Providers: Admitting Physician: Siomara Suarez MD Primary Care Physician: Mukesh Alonso DO Attending Physician: Siomara Suarez MD Diagnosis at Time of Discharge Diagnosis at Time of Discharge 1. Expiration 2. Acute respiratory failure, hypoxic. 3. COPD exacerbation. 4. Possible acute stroke with left hemiparesthesia Sunday of expiration 5. Chronic atrial fibrillation with intermittent rapid ventricular response. 6. Probable chronic systolic heart failure with a akinetic inferior apex of the heart and a EF of approximately 45% Consultations None Procedures XRay, CTs & MRIs Chest Xray Interpretation: Impresson: Increasing pleural effusions bilaterally. Chronic changes associated with asbestosis. View: Portable Interpretation / Wet Read by: Wet read ED physician ECG 12 Lead ECG Interpretation: Atrial fibrillation, Rate 72 Old inferior wall VT Time: 23:15 Interpreted by: ED physician Normal ECG Interpretation: No acute ischemic changes Cardiac Echo Impression nterpretation Summary 1) Normal left ventricular size and thickness with mildly reduced systolic function (EF45-50%). 2) Basal to mid inferior wall and basal to mid inferolateral wall are akinetic. 3) Moderately dilated right ventricle with moderately reduced function. 4) Mild to moderate mitral regurgitation present. 5) Severe tricuspid regurgitation present. 6) Pulmonary hypertension present, estimated systolic pulmonary pressure of 50 mmHg 7) Elevated right sided filling pressures. Left sided pleural effusion present. 8) Compared to the Echo done 06/15/2015, wall motion abnormalities as noted above, mild systolic dysfunction, and volume overload are new on today's study. Other Diagnostics Lexiscan stress test on February 06. The patient was in A. fib with a moderate response at the time of the start of the exam. He received Lexiscan injection and had some dyspnea and cough. He also had mild hypotension and the symptoms were relieved with 100 mg of Aminophyllin and 2.5 mg of IV metoprolol. The baseline EKG showed atrial fibrillation and nonspecific ST segment abnormalities but no significant depressions or elevations. Initial myocardial perfusion indicated a normal perfusion along the anterior wall and septum but extensive area of dense hypoperfusion on the inferior septum and inferior apex as well as inferior and posterior lateral wall. This suggested fairly extensive ischemia and/or scar in the distribution of the RCA. Recommendations for a second day resting scan to differentiate before between ischemia and infarct. 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 He has increased his oxygen at home from 2 liters to 3 liters. His told ER physician that the patient has collapsed once yesterday and once today, with decreased exercise capacity. The patient was evaluated by EMS yesterday after he collapsed, but he did not want to be transported to the ED. However, he was transported today (02/02) after he collapsed prior to arrival. He did not lose consciousness. His states he feels fine if sitting, but if moves to his portable oxygen reports that he cannot breathe. The patient reported that he felt unwell at home prior to arrival, however currently he denies any pain, dizziness, nausea, vomiting, shortness of breath, palpitations. His reported a home O2 sat of 95% while on oxygen. The patient is very hard of hearing. . 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 1. - Elevated troponin (0.075). POA. We elected to proceed with a stress test. This was done today. We are awaiting the results but patient was not really symptomatic during his pharmacologic test. The patient's decompensation today will mandate holding on the stress test. His persistently elevated troponin with increased dyspnea and a normal EKG increases the concern for pulmonary embolism. We will obtain a CT pulmonary angiogram today. 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 3. COPD, present on admission, chronic. Possible acute exacerbation. I had started treating him with thiamine Medrol bronchodilators with his acute dyspnea on exertion yesterday which I believe is indicative of an exacerbation in A fairly severe chronic lung disease. I believe he is clinically improving but slowly. 4. Possible to make her pneumonia. This was detected as a small infiltrate on CT scan. He is currently being treated with empiric ceftriaxone and azithromycin. No change to current management. 5. Atrial fibrillation, present on admission, chronic The patient is therapeutic on his Coumadin today 6. Hypertension, present on admission, chronic - currently controlled 7. Dyslipidemia, present on admission, chronic - lipid panel ordered CODE STATUS: DNR/DNI verified with patient Hospital course. This is very pleasant patient who is initially admitted with dyspnea. At the time of admit it was felt that he was suffering from acute on chronic diastolic heart failure and he was diuresed. The patient did improve in the first interval. He also had a mild troponin elevation which is stable over 2 days without dynamic ECG changes. The patient then had an episode of word of severe desaturation while walking to the bathroom. This improved with rest. The patient had paroxysmal atrial fibrillation as well. The patient had a CT of the chest to rule out PE which was negative for PE suggested a possible small infiltrate. Because of his long history of smoking and presumed COPD he was started on Solu-Medrol, bronchodilators and antibiotics. The patient seemed to improve but then on the next day had another desaturation. On the diet this also improved with rest and increased oxygen. A ECG at this time was unremarkable. On the day of expiration the patient ultimately acute respiratory distress with hypoxia again which improved with a facemask. He also developed acute left hemiparesis of the arm and leg. The patient was therapeutic on Coumadin that day which she takes for chronic atrial fibrillation. The patient is given rectal aspirin and his symptoms seemed to improve. He then became more dyspneic and had a recurrent left hemiparesis. Earlier in that morning the patient underwent the first phase of a Lexiscan stress test. He was given vacation he did feel somewhat short of breath but had no dynamic dynamic ST changes. Reema images were not available at the time of his expiration but later indicated either a large fixed defect of the inferior and lateral aspect of the heart versus a large area of her of ischemia. The plan had been for a second day study the day of after expiration. After the patient's neurologic symptoms she failed to improve and had more severe respiratory distress. The point the patient was supported and ultimately was felt that he was unlikely to survive. The patient had previously voiced DNR/DNI. The situation was discussed on the telephone with his daughter around 8 PM on the second. At that point the patient was placed on a comfort care order set with morphine. However he of apparent acute hypoxic respiratory failure prior to the institution of the order set. Exam Vital Signs (Last) Date Time Temp Pulse Resp B/P Pulse Ox O2 Delivery O2 Flow Rate FiO2 02/07/16 20:33 78 37 94 50 02/07/16 19:30 CPAP/BIPAP 02/07/16 19:24 100/57 02/07/16 18:58 36.3 02/07/16 14:14 1.50 Exam Exam on the day prior to expiration. The patient was acutely dyspneic. He was alert. Lungs were normal for expiratory wheezing anterior for breath sounds.. Heart was irregular and tachycardic. Abdomen soft. Extremities are free of edema and rapid pedal pulses. Test 02/03/16 22:00 02/03/16 22:57 02/04/16 01:10 02/04/16 05:50 Hold Purple Top Tube Received (Received) Hold Blue Top Tube Received (Received) Magnesium Level 1.8mg/dL (1.6-2.6) Pro-B-Type Natriuretic Peptide 4361pg/mL (0-486) Procalcitonin < 0.05ng/mL (See Comment) Hold Red Top Tube Received (Received) Hold [place] Top Tube Received (Received) Hold [place] Top Tube Received (Received) Urine Color Yellow (YELLOW) Urine Appearance Clear (CLEAR,HAZY) Urine pH 5.5 (5.0-8.0) Urine Specific [place] 1.025 (1.003-1.035) Urine Protein Negativemg/dL (NEG,TRACE) Urine Glucose (UA) Negativemg/dL (NEGATIVE) Urine Ketones Negativemg/dL (NEGATIVE) Urine Occult Blood Negative (NEGATIVE) Urine Nitrite Negative (NEGATIVE) Urine Bilirubin Negative (NEGATIVE) Urine Urobilinogen 1.0mg/dL (NORMAL) Urine Leukocyte Esterase Negative (NEGATIVE) Urine RBC 0-2/hpf (0-2) Urine WBC 0-5/hpf (0-5) Urine Epithelial Cells Occasional/hpf (NONE-MOD) Urine Crystals None seen (NONE SEEN) Urine Bacteria None/hpf (NONE-FEW) Urine Hyaline Casts Occasional/lpf (NONE) Urine Granular Casts None seen (NONE SEEN) Urine Waxy Casts None seen (NONE SEEN) Urine Red Blood Cell Casts None seen (NONE SEEN) Urine White Blood Cell Casts None seen (NONE SEEN) Urine Mucus Present (None Seen) Urine Trichomonas None seen (NONE SEEN) Urine Yeast None (NONE SEEN) Urine Culture Reflexed Not indicated Neutrophils (%) (Auto) 74.8% (40-74) Lymphocytes (%) (Auto) 13.3% (14-46) Monocytes (%) (Auto) 11.2% (4-12) Eosinophils (%) (Auto) 0.3% (0-5) Basophils (%) (Auto) 0.3% (0-3) Test 02/06/16 10:50 02/06/16 23:50 02/07/16 02:50 White Blood Count 10.1th/mm3 (3.8-10.1) Red Blood Count 4.76mil/mm3 (4.40-5.80) Hemoglobin 15.1g/dL (13.8-17.2) Hematocrit 45.9% (41.0-50.0) Mean Corpuscular Volume 96.4fL (81-100) Mean Corpuscular Hemoglobin 31.7pg (27.0-35.0) Mean Corpuscular Hemoglobin Concent 32.9% (32.0-37.0) Red Cell Distribution Width 13.3% (12.3-15.4) Platelet Count 289bil/L (150-400) Sodium Level 134mEq/L (134-144) Potassium Level 4.6mEq/L (3.5-5.2) Chloride Level 92mEq/L (97-108) Carbon Dioxide Level 25mmol/L (18-29) Blood Urea Nitrogen 19mg/dL (8-27) Creatinine 0.60mg/dL (0.76-1.27) Estimat Glomerular Filtration Rate 135mL/min (>59) Glucose Level 138mg/dL (60-99) Calcium Level 8.8mg/dL (8.5-10.1) Total Bilirubin 1.5mg/dL (0.0-1.2) Aspartate Amino Transf (AST/SGOT) 26U/L (0-50) Alanine Aminotransferase (ALT/SGPT) 16U/L (0-44) Alkaline Phosphatase 122U/L (25-160) Troponin T 0.138ug/L (0.0-0.011) Total Protein 6.0g/dL (6.4-8.4) Albumin 3.7g/dL (3.4-5.0) Activated Partial Thromboplast Time 32.7sec (22.8-33.0) Prothrombin Time 27.3sec (8.1-12.5) Prothromb Time International Ratio 2.50ratio Microbiology Results Microbiology 02/03/16 Blood Culture, Received Pending 02/03/16 Influenza Screen - Final, Complete, negative Discharge Medications Discharge Medications Aspirin (Aspirin) 81 Mg Tablet 81 MG PO DAILY (Reported) Atorvastatin Calcium (Atorvastatin Calcium) 10 Mg Tablet 10 MG PO DAILY ( Reported) Calcium Carbonate (Calcium) 600 Mg Tablet 600 MG PO QPM (Reported) Diltiazem ER (Cardizem LA) 240 Mg Tab.er.24h 240 MG PO DAILY (Reported) Enalapril Maleate (Enalapril Maleate) 2.5 Mg Tablet 2.5 MG PO DAILY (Reported) Ferrous Sulfate (Iron) 325 Mg Tablet 325 MG PO DAILY (Reported) Hydrocodone-Acetaminophen 5-325 mg (Hydrocodone-Acetaminophen 5-325 mg) 1 Each Tablet 2 TAB PO HS (Reported) Metformin (Metformin) 500 Mg Tablet 500 MG PO DAILY (Reported) Warfarin Sodium (Warfarin Sodium) 3 Mg Tablet 3 MG PO Sun/Tues/Thus/Sat ( Reported) Warfarin Sodium (Warfarin Sodium) 3 Mg Tablet 1.5 MG PO Mon/Sun/Fri (Reported) Followup Plan Disposition: 40 minutes Trey Ang MD Feb 09, 2016 17:56
== END 2016-02-07 21:05 | disposition expired | DRG 291 ==
LOC: EDBD 21:53 → SED 21:53 → PCC 02-04 00:22
PROVIDERS: ADMIT Specialist; ATTEND Specialist
PROC: 4A033R1 Measurement of Arterial Saturation, Peripheral, Percutaneous Approach (ICD-10-PCS; principal; 2016-02-03)
DX: I50.23 Acute on chronic systolic (congestive) heart failure (principal); J96.01 Acute respiratory failure with hypoxia; I63.9 Cerebral infarction, unspecified; J18.9 Pneumonia, unspecified organism; J44.1 Chronic obstructive pulmonary disease with (acute) exacerbation; J90 Pleural effusion, not elsewhere classified; I48.2 Chronic atrial fibrillation; I10 Essential (primary) hypertension; Z66 Do not resuscitate; Z87.891 Personal history of nicotine dependence